=== PATIENT | male | born 1995 | race Caucasian/White ===

== ENCOUNTER 2017-10-11 18:23 | Emergency (ER) | payer OTHER | END 2017-10-11 22:13 | disposition home or self-care (01) | LOC: M ED 18:23 | DX: M79.604 Pain in right leg (principal); M79.605 Pain in left leg | CPT/HCPCS: 93970 ==

== ENCOUNTER 2017-10-17 21:00 | Emergency (ER) | payer OTHER ==
[2017-10-17] MEDS: NORCO, ANEXSIA 5/325MG TABLET (HYDROcodone/ACETAMINOPHEN) PO (22:58)
== END 2017-10-17 23:00 | disposition home or self-care (01) ==
LOC: M ED 21:00
DX: M79.674 Pain in right toe(s) (principal); M79.675 Pain in left toe(s); R20.2 Paresthesia of skin
CPT/HCPCS: 99282